=== PATIENT | male | born 1990 | race Caucasian/White ===

== ENCOUNTER 2017-04-06 18:44 | Emergency (ER) | payer OTHER ==
[2017-04-06 18:48] VITALS: TEMP 98.1
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
[2017-04-06 20:38] VITALS: BP 157/103; PULSE 67; RESP 20; O2SAT 95
== END 2017-04-06 20:38 | disposition home or self-care (01) ==
DX: S06.0X0A Concussion without loss of consciousness, initial encounter (principal); Z87.891 Personal history of nicotine dependence; V86.59XA Driver of other special all-terrain or other off-road motor vehicle injured in nontraffic accident, initial encounter; Y92.89 Other specified places as the place of occurrence of the external cause; Y99.0 Civilian activity done for income or pay; Y93.89 Activity, other specified